=== PATIENT | female | born 1980 | race Caucasian/White ===

== ENCOUNTER 2020-06-27 10:07 | Emergency (ER) | payer MEDICAID ==
[~2020-06-27] VITALS: Ht 157.5 cm; Wt 54.5 kg
[~2020-06-27 10:07] MED LIST: ONDA4TAB59 PO
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
[2020-06-27] MEDS ORDERED: IBUP-1984 PO (12:07)
[2020-06-27 12:13] VITALS: BP 128/86
== END 2020-06-27 13:32 | disposition home or self-care (01) ==
LOC: EEVIPCON 10:07 → ER 10:07
DX: M79.601 Pain in right arm (principal); R51.9 Headache, unspecified; F41.9 Anxiety disorder, unspecified; F12.90 Cannabis use, unspecified, uncomplicated; Z98.51 Tubal ligation status; Z90.89 Acquired absence of other organs; Z72.89 Other problems related to lifestyle; Z88.8 Allergy status to other drugs, medicaments and biological substances; Z79.899 Other long term (current) drug therapy; Y09 Assault by unspecified means
CPT/HCPCS: 70450; 70486; 72125; 73090; 99285